=== PATIENT | male | born 1955 | race Two or more races ===

== ENCOUNTER 2016-09-14 08:05 | Inpatient (IN) | payer MEDICAID ==
[2016-09-14 08:44] VITALS: BP 112/68
[2016-09-14] MEDS ORDERED: Dextrose 50% 50 mL Abboject IVP PRN ×2 (09:24→19:23)
[2016-09-14 10:07] LABS: % BASOPHILS 0.9 % (0.0-2.0); % EOSINOPHILS 2.2 % (0.0-5.0); % LYMPHOCYTES 18.6 % (20.0-50.0); % MONOCYTES 6.5 % (2.0-10.0); % NEUTROPHILS 71.8 % (40.0-80.0); HEMATOCRIT 40.4 % (39.0-49.0); HEMOGLOBIN 13.2 gm/dL (13.2-17.3); MEAN CELL VOLUME 81.6 fl (80-99); MEAN CORPUSCULAR HEMOGLOBIN 26.8 pg (26.0-30.0); MEAN CORPUSCULAR HGB CONC 32.8 pg (28.0-36.0); MEAN PLATELET VOLUME 8.5 fl; NEUTROPHILE ABSOLUTE 4.9 Th/cmm (1.8-8.0); PLATELET COUNT 185 Th/cmm (150-400); RED BLOOD COUNT 4.95 Mil/cmm (4.30-5.70); RED CELL DISTRIBUTION WIDTH 15.3 % (11.5-20.0); WHITE BLOOD COUNT 6.7 Th/cmm (4.8-10.8)
[2016-09-14] MEDS ORDERED: Diatrizoate Meglumine/Diatri 30 mL Sol PO ONE (11:00)
[2016-09-14 11:41] LABS: ALB/GLOB RATIO 1.2 (1.0-1.8); ALKALINE PHOSPHATASE 70 U/L (34-104); BILIRUBIN,TOTAL 0.9 mg/dL (0.3-1.0); BUN - UREA NITROGEN 9 mg/dL (7-25); BUN/CREATININE RATIO 12.9; CALCIUM SERUM 9.1 mg/dL (8.6-10.3); CHLORIDE 105 mEq/L (98-107); CREATININE - SERUM 0.7 mg/dL (0.7-1.3); GLUCOSE 58 mg/dL (70-105); SGOT 115 U/L (13-39); SGPT/ALT 27 U/L (7-52); SODIUM SERUM 132 mEq/L (136-145)
--- NOTE | 2016-09-14 11:53 | History & Physical ---
CHIEF COMPLAINT: Hypoglycemia. HISTORY OF PRESENT ILLNESS: This is the case of a 61-year-old male who went to [facility] ER secondary to altered mental status. During review in ER, the patient was found confused, not responsive and became very agitated. Examination shows hypoglycemia, positive for amphetamines. The patient was given D50 and the patient was transferred to the hospital to continue treatment. PAST MEDICAL HISTORY: History of alcohol and drug abuse, acute renal failure, major depression, gastric ulcer, and alcoholism. PAST SURGICAL HISTORY: Information not available. FAMILY HISTORY: Information not available. MEDICATIONS: None. REVIEW OF SYSTEMS: Information was not obtained secondary to the patient's mental condition. PHYSICAL EXAMINATION: GENERAL: Does reveal a fairly nourished and developed male, awake, confused, not oriented, not responding well to questions. HEENT: Head is normocephalic and atraumatic. Pupils reactive to light. Nose: No evidence of nasal obstruction. Ears: No evidence of any discharge. Mouth: Fairly ____. LUNGS: Bilateral air entry. No wheezing, no crackles. HEART: Regular rhythm. ABDOMEN: Soft, nontender. Bowel sounds present. EXTREMITIES: No edema. NEUROLOGICAL: The patient is awake, confused, not oriented. Neurological examination was not completed secondary to the patient's mental condition. IMPRESSION: 1. Hyponatremia. 2. Positive for amphetamines. 3. History of alcohol and drug abuse. PLAN: 1. The patient will be admitted to the medical surgical floor. 2. IV D10 continuous. 3. Endocrinology consult. 4. Regular diet. 5. Insulin level. 6. CBC and CMP. 7. Abdominal CT. JOB# [id number]
[2016-09-14] MEDS: INSULIN ASPART SLIDING SCALE 100 UNITS/ML UNIT SUBQ SCH ×3 (12:14→20:30)
[2016-09-14 12:17] LABS: ANION GAP 5.3 (7.0-16.0); POTASSIUM SERUM 3.3 mEq/L (3.5-5.1)
[2016-09-14] MEDS: Dextrose 10% 1,000 ML IV SCH ×2 (14:24→21:09)
[2016-09-14] MEDS ORDERED: IOHEXOL 300MG/ML 100 ML VIAL IVP ONE (15:05)
[2016-09-14 15:33] LABS: INR 1.02 (0.5-1.4); PROTHROMBIN TIME (TEST) 10.1 SECONDS (9.5-11.5)
[2016-09-14] MEDS ORDERED: VTE Chemical Prophylaxis Screen/Admission MC PRN (16:58)
--- NOTE | 2016-09-14 19:38 | Admit Criteria Form ---
Admit Criteria Forms - Admit Criteria Diagnosis: SUBSTANCE ABUSE Clinical Indications for Admission to Inpatient Care (Place 'X' for any and all applicable criteria): Admission is indicated due to ANY ONE of the following(1)(2)(3)(4)(5): [ ]I. Delirium due to alcohol or sedative A withdrawal B ( Also use Delirium Criteria as appropriate)1,6,7 [ ]II. Alcohol or sedative withdrawal with high-risk indicator as manifested by ALL of the following1,3,6,7 [ ]a) Signs of withdrawal as indicated by ANY ONE of the following: [ ]i) Heart rate greater than 100 beats per minute [ ]ii) Nausea or vomiting [ ]iii) Other physical signs of alcohol or sedative withdrawal [ ]iv) Tremor [ ](v) Increased perspiration [ ]b) Elevated risk due to a historical or comorbid factor as indicated by ANY ONE of the following: [ ]i) History of delirium due to alcohol or sedative withdrawal [ ]ii) History of repetitive seizures due to alcohol or sedative withdrawal C [ ]iii) Intrinsic seizure disorder (epilepsy) [ ]iv) [ ]v) Comorbid medical condition that can be dangerously destabilized by alcohol or sedative withdrawal (eg, severe cardiac disease) [ ]III. Severe alcohol or sedative withdrawal that is unmanageable at lower level of care, as manifested by ALL of the following1,3,6,7 [ ]a) Marked signs of withdrawal as indicated by ANY ONE of the following: [ ]i) Heart rate greater than 120 beats per minute [ ]ii) Vomiting [ ]iii) Grossly visible tremor [ ]iv) Profuse perspiration [ ]v) Temperature greater than 38.3 degrees C (101 degrees F) [ ]vi) Other marked physical signs of alcohol or sedative withdrawal [ ]b) Signs of withdrawal which require inpatient treatment as indicated by ANY ONE of the following: [ ]i) Inadequate response to pharmacotherapy in emergency department or other appropriate lower level of care [ ]ii) Lower level of care not feasible or appropriate (eg, unavailable or inappropriate to patient condition or treatment history) [ ]IV. Severely complicated opioid withdrawal that requires [id number] care as manifested by ALL of the following 1,4,7,11 [ ]a) Vomiting or diarrhea due to opioid withdrawal [ ]b) Marked dehydration or electrolyte abnormality that cannot be corrected (to near normal) in an emergency department or other ambulatory setting (eg, serum K<2.5 mEq/L , serum Na <130 mEq/L [X]V. Acute toxicity or instability from substance use requiring inpatient care (eg, altered mental status, respiratory depression) that has had inadequate response to, or is judged inappropriate for, treatment at lower level of care (eg, emergency department, observation care) [ ]. Other inpatient medical or psychiatric care is needed due to risk or comorbidity as indicated by ALL of the following(18): [ ]a) Treatment is needed because of patient risk due to ANY ONE of the following: [ ]i) Medical condition (eg, severe cardiac disease) that requires 24-hour monitoring and treatment due to danger of destabilization by alcohol or sedative withdrawal is present [ ]ii) Imminent danger to self is present due to ANY ONE of the following(19)(20)(21): [ ]1) Imminent risk for recurrence of Suicide attempt or act of serious Harm to self is present as indicated by ALL of the following: [ ]A. There has been very recent Suicide attempt or deliberate act of serious Harm to self. [ ]B. There has not been Sufficient relief of the factors that precipitated the attempt or act. [ ]2) Current plan for suicide or serious Harm to self is present. [ ]3) Command auditory hallucinations for suicide or serious Harm to self are present. [ ]4) Patient has persistent Thoughts of suicide or serious Harm to self that cannot be adequately monitored at lower level of care due to ANY ONE of the following[E]: [ ]A. Insufficient behavioral care is available to meet patient needs (such as required provider or lower level facility is not available). [ ]B. Patient characteristics such as high impulsivity or unreliability are present. [ ]C. Environment does not support recovery. [ ]D. Ready access to lethal means [ ]iii) Imminent danger to others is present due to ANY ONE of the following(19)(23)(24): [ ]1) Imminent risk for recurrence of attempt to seriously Harm another is present as indicated by ALL of the following: [ ]A. There has been very recent attempt to seriously Harm another. [ ]B. There has not been Sufficient relief of factors that precipitated the attempt or act. [ ]2) Current plan for homicide or serious Harm to another is present. [ ]3) Command auditory hallucinations or paranoid delusions contributing to risk for homicide or serious Harm to another are present. [ ]4) Patient has persistent thoughts of homicide or serious Harm to another that cannot be adequately monitored at lower level of care because of ANY ONE of the following[E]: [ ]A. Insufficient behavioral care is available to meet patient needs (such as required provider or lower level facility is not available). [ ]B. High impulsivity or unreliability is present. [ ]C. Environment does not support recovery. [ ]D. Ready access to lethal means [ ]iv) Severe dysfunction in daily living related to substance use disorder as indicated by ANY ONE of the following(33): [ ]a) Extreme deterioration in social interactions (eg , threatening behaviors with little or no provocation) [ ]b) Complete withdrawal from all social interactions [ ]c) Complete neglect of self-care with associated impairment in physical status [ ]d) Extreme disruption in vegetative function (eg, life-sustaining functions such as eating) [ ]e) Complete inability to maintain any appropriate aspect of personal responsibility in any adult roles (eg, occupational, parental ) [ ]v) Other emotional, behavioral, or cognitive symptoms of sufficient severity to preclude ability to engage in recovery without 24-hour monitoring and treatment are present. [ ]vi) Patient requires monitoring due to substance use in combination with medical, psychiatric, or environmental factors that prevent adequate management at lower level of care as indicated by ALL of the following: [ ]1) Significant substance use effects, medical conditions, or psychiatric comorbidities are present as indicated by ANY ONE of the following [ ]A. Substance toxicity or withdrawal requires medical monitoring. [ ]B. Medical comorbidity requires medical monitoring for destabilization due to alcohol or sedative withdrawal. [ ]C. Emotional, behavioral, or cognitive symptoms of sufficient severity to limit or preclude ability to engage in treatment are present. [ ]2) Conditions, barriers, or environmental factors preventing treatment at lower level of care are present as indicated by ANY ONE of the following: [ ]A. Psychiatric comorbidity or opposition to treatment requires 24-hour setting to ensure adherence with medical treatment or adequate motivating interventions. [ ]B. Severe behavioral problems (eg, escalating relapse behaviors, acute psychiatric or substance use crisis, inability to recognize signs and symptoms of relapse ) require 24-hour setting for relapse prevention.[F] [ ]C. Living environment outside of 24-hour setting prevents recovery (eg, abuse, victimization, patient inability to cope). [ ]b Treatment situation and needs are appropriate for inpatient level ( instead of using lower level of care) as indicated by ANY ONE of the following( 25)(26)(27): [ ]i) Patient is unwilling to participate voluntarily and requires treatment (eg, legal commitment) in involuntary unit.(23) [ ]ii) Voluntary treatment at lower level is not feasible (eg, lower level care unavailable or inappropriate for patient condition). [ ]iii) Physical restraint, seclusion, or other involuntary control is needed (eg, actively violent patient for whom treatment in an involuntary unit is deemed necessary in accord with applicable medical and legal criteria).(23) [ ]iv) [id number]-[id number] medical or nursing care to address symptoms and initiate interventions is required; specific need is identified. Extended stay beyond goal length of stay may be needed for: [ ]a) Onset of delirium [ ]b) Recurrent seizures [ ]c) Persistent severe alcohol or sedative withdrawal [ ]d) Persistent dangerous behavior The original [facility] content created by [employer] has been revised. The portions of the content which have been revised are identified through the use of italic text or in bold, and [facility] has neither reviewed nor approved the modified material. All other unmodified content is copyright [facility]. Please see references footnoted in the original [facility] edition 2016 Admit Criteria Met?: Yes
[2016-09-14 20:36] LABS: AMPHETAMINE URINE POSITIVE (NEGATIVE); BARBITURATES URINE NEGATIVE (NEGATIVE)
[2016-09-15] MEDS: INSULIN ASPART SLIDING SCALE 100 UNITS/ML UNIT SUBQ SCH ×5 (01:08→16:35)
[2016-09-15 05:56] LABS: % BASOPHILS 0.2 % (0.0-2.0); % EOSINOPHILS 2.5 % (0.0-5.0); % LYMPHOCYTES 30.1 % (20.0-50.0); % MONOCYTES 8.4 % (2.0-10.0); % NEUTROPHILS 58.8 % (40.0-80.0); HEMATOCRIT 42.5 % (39.0-49.0); HEMOGLOBIN 13.6 gm/dL (13.2-17.3); MEAN CELL VOLUME 81.6 fl (80-99); MEAN CORPUSCULAR HEMOGLOBIN 26.1 pg (26.0-30.0); MEAN PLATELET VOLUME 8.7 fl; NEUTROPHILE ABSOLUTE 3.3 Th/cmm (1.8-8.0); PLATELET COUNT 205 Th/cmm (150-400); RED BLOOD COUNT 5.21 Mil/cmm (4.30-5.70); RED CELL DISTRIBUTION WIDTH 15.7 % (11.5-20.0); WHITE BLOOD COUNT 5.6 Th/cmm (4.8-10.8)
[2016-09-15 06:18] LABS: ALB/GLOB RATIO 1.1 (1.0-1.8); ALKALINE PHOSPHATASE 87 U/L (34-104); ANION GAP 6.1 (7.0-16.0); BILIRUBIN,TOTAL 0.6 mg/dL (0.3-1.0); BUN - UREA NITROGEN 9 mg/dL (7-25); BUN/CREATININE RATIO 11.3; CALCIUM SERUM 9.4 mg/dL (8.6-10.3); CHLORIDE 107 mEq/L (98-107); CHOLESTEROL 187 mg/dL (<200); CREATININE - SERUM 0.8 mg/dL (0.7-1.3); GLUCOSE 91 mg/dL (70-105); POTASSIUM SERUM 4.1 mEq/L (3.5-5.1); SGOT 119 U/L (13-39); SGPT/ALT 30 U/L (7-52); SODIUM SERUM 134 mEq/L (136-145); TRIGLYCERIDES 162 mg/dL (<150); URIC ACID 4.6 mg/dL (4.4-7.6)
[2016-09-15 07:03] LABS: URINE BILIRUBIN NEGATIVE (NEGATIVE); URINE BLOOD NEGATIVE (NEGATIVE); URINE COLOR YELLOW; URINE GLUCOSE (UA) NEGATIVE (NEGATIVE); URINE KETONE NEGATIVE (NEGATIVE); URINE PROTEIN NEGATIVE (NEGATIVE); URINE UROBILINOGEN 0.2 E.U./dL (0.2 - 1.0)
[2016-09-15 07:10] LABS: URINE BACTERIA NONE SEEN /hpf (NONE SEEN); URINE EPITHELIAL CELLS RARE /lpf (FEW); URINE RBC NONE SEEN /hpf (0-5); URINE WBC NONE SEEN /hpf (0-5)
[2016-09-15] MEDS: Dextrose 10% 1,000 ML IV SCH ×2 (08:49→19:36)
--- NOTE | 2016-09-15 13:22 | General Progress Note ---
Subjective - Review of Systems Service Date: 09/15/16 Subjective: I am better Objective - Results Result Diagrams: 09/15/16 05:20 09/15/16 05:20 Recent Labs: Laboratory Last Values WBC 5.6 Th/cmm (4.8-10.8) 09/15/16 05:20 RBC 5.21 Mil/cmm (4.30-5.70) 09/15/16 05:20 Hgb 13.6 gm/dL (13.2-17.3) 09/15/16 05:20 Hct 42.5 % (39.0-49.0) 09/15/16 05:20 MCV 81.6 fl (80-99) 09/15/16 05:20 MCH 26.1 pg (26.0-30.0) 09/15/16 05:20 MCHC Differential 32.0 pg (28.0-36.0) 09/15/16 05:20 RDW 15.7 % (11.5-20.0) 09/15/16 05:20 Plt Count 205 Th/cmm (150-400) 09/15/16 05:20 MPV 8.7 fl 09/15/16 05:20 Neutrophils % 58.8 % (40.0-80.0) 09/15/16 05:20 Lymphocytes % 30.1 % (20.0-50.0) 09/15/16 05:20 Monocytes % 8.4 % (2.0-10.0) 09/15/16 05:20 Eosinophils % 2.5 % (0.0-5.0) 09/15/16 05:20 Basophils % 0.2 % (0.0-2.0) 09/15/16 05:20 PT 10.1 SECONDS (9.5-11.5) 09/14/16 13:25 INR 1.02 (0.5-1.4) 09/14/16 13:25 Sodium 134 mEq/L (136-145) L 09/15/16 05:20 Potassium 4.1 mEq/L (3.5-5.1) 09/15/16 05:20 Chloride 107 mEq/L (98-107) 09/15/16 05:20 Carbon Dioxide 25.0 mEq/L (21.0-31.0) 09/15/16 05:20 Anion Gap 6.1 (7.0-16.0) L 09/15/16 05:20 BUN 9 mg/dL (7-25) 09/15/16 05:20 Creatinine 0.8 mg/dL (0.7-1.3) 09/15/16 05:20 Est GFR ( Amer) > 60.0 ml/min (>90) 09/15/16 05:20 Est GFR (Non-Af Amer) > 60.0 ml/min 09/15/16 05:20 BUN/Creatinine Ratio 11.3 09/15/16 05:20 Glucose 91 mg/dL (70-105) 09/15/16 05:20 POC Glucose 137 MG/DL (70 - 105) H 09/15/16 11:34 Hemoglobin A1c % 5.3 % (4.0-6.0) 09/15/16 05:20 Uric Acid 4.6 mg/dL (4.4-7.6) 09/15/16 05:20 Calcium 9.4 mg/dL (8.6-10.3) 09/15/16 05:20 Total Bilirubin 0.6 mg/dL (0.3-1.0) 09/15/16 05:20 AST 119 U/L (13-39) H 09/15/16 05:20 ALT 30 U/L (7-52) 09/15/16 05:20 Alkaline Phosphatase 87 U/L (34-104) 09/15/16 05:20 Total Protein 7.5 gm/dL (6.0-8.3) 09/15/16 05:20 Albumin 3.9 gm/dL (4.2-5.5) L 09/15/16 05:20 Globulin 3.6 gm/dL 09/15/16 05:20 Albumin/Globulin Ratio 1.1 (1.0-1.8) 09/15/16 05:20 Triglycerides 162 mg/dL (<150) H 09/15/16 05:20 Cholesterol 187 mg/dL (<200) 09/15/16 05:20 LDL Cholesterol Direct 132 mg/dL (75-193) 09/15/16 05:20 HDL Cholesterol 34 mg/dL (23-92) 09/15/16 05:20 Urine Source CLEAN C 09/15/16 02:30 Urine Color YELLOW 09/15/16 02:30 Urine Clarity SL. CLOUDY (CLEAR) 09/15/16 02:30 Urine pH 7.0 09/15/16 02:30 Ur Specific [place] 1.015 (1.005-1.030) 09/15/16 02:30 Urine Protein NEGATIVE mg/dL (NEGATIVE) 09/15/16 02:30 Urine Glucose (UA) NEGATIVE mg/dL (NEGATIVE) 09/15/16 02:30 Urine Ketones NEGATIVE mg/dL (NEGATIVE) 09/15/16 02:30 Urine Blood NEGATIVE (NEGATIVE) 09/15/16 02:30 Urine Nitrate NEGATIVE (NEGATIVE) 09/15/16 02:30 Urine Bilirubin NEGATIVE (NEGATIVE) 09/15/16 02:30 Urine Urobilinogen 0.2 E.U./dL (0.2 - 1.0) 09/15/16 02:30 Ur Leukocyte Esterase NEGATIVE (NEGATIVE) 09/15/16 02:30 Urine RBC NONE SEEN /hpf (0-5) 09/15/16 02:30 Urine WBC NONE SEEN /hpf (0-5) 09/15/16 02:30 Ur Epithelial Cells RARE /lpf (FEW) 09/15/16 02:30 Urine Bacteria NONE SEEN /hpf (NONE SEEN) 09/15/16 02:30 Urine Opiates Screen POSITIVE (NEGATIVE) H 09/14/16 15:30 Ur Barbiturates Screen NEGATIVE (NEGATIVE) 09/14/16 15:30 Ur Phencyclidine Scrn NEGATIVE (NEGATIVE) 09/14/16 15:30 Amphetamines Screen POSITIVE (NEGATIVE) H 09/14/16 15:30 U Methamphetamines Scrn POSITIVE (NEGATIVE) H 09/14/16 15:30 U Benzodiazepines Scrn POSITIVE (NEGATIVE) H 09/14/16 15:30 U Cocaine Metab Screen NEGATIVE (NEGATIVE) 09/14/16 15:30 U Cannabinoids Screen NEGATIVE (NEGATIVE) 09/14/16 15:30 - Physical Exam Vitals and I&O: Vital Signs Temp 98.2 F 09/15/16 12:06 Pulse 69 09/15/16 12:06 Resp 18 09/15/16 12:06 BP 147/76 09/15/16 12:06 Pulse Ox 99 09/15/16 12:06 Intake & Output 09/14/16 09/15/16 09/15/16 18:59 06:59 18:59 Intake Total 1175 1000 Output Total 1650 Balance -475 1000 Weight (lbs) 72.892 kg Intake: Intake, IV Amount 675 1000 Dextrose 10% 1,000 ml @ 675 1000 100 mls/hr IV .Q10H BIANKA Rx#:[id number] Oral 500 Output: Urine 1650 Other: # Bowel Movements 0 Active Medications: Current Medications Dextrose (D50w) 50 ml IVP PRN PRN PRN Reason: hypoglycemia Stop: 11/13/16 09:23 Last Admin: 09/14/16 20:33 Dose: 50 ml Dextrose (Dextrose 10%) 1,000 mls @ 100 mls/hr IV .Q10H BIANKA Stop: 11/13/16 09:29 Last Admin: 09/15/16 08:49 Dose: 100 mls/hr Insulin Aspart (Novolog Insulin Sliding Scale) 0 units SUBQ Q4HR BIANKA PRN Reason: Protocol Stop: 11/13/16 12:14 Last Admin: 09/15/16 12:07 Dose: Not Given Miscellaneous (Vte Chemical Prophylaxis Screen/ Admission) 1 ea MC PRN PRN PRN Reason: PROTOCOL Stop: 11/13/16 16:57 General: Alert, Oriented x3, Cooperative, No acute distress HEENT: Atraumatic Neck: Supple Cardiovascular: Regular rate Lungs: Clear to auscultation Abdomen: Bowel sounds, Soft Extremities: Other (No edema) Neurological: Normal gait Skin: Other (Warm and dry) Psych/Mental Status: Mental status NL Assessment/Plan - Assessment Assessment: Patient is awake, alert, calm. Dx: Hypoglycemia, drug abuse - Plan Plan: Patient is more awake today, answering question. Abdominal CT will be done today. Insurance request patient be transfered.
--- NOTE | 2016-09-15 14:17 | Diagnostic Imaging Report ---
CT abdomen and pelvis without intravenous contrast Indication: Chronic hypoglycemia Comparison: None, Technique: Axial images were obtained from the lung bases to the bilateral proximal femurs without IV contrast. Oral contrast was administered. Coronal reconstructions were made. total DLP: 419, CTDI8.5 FINDINGS: 1 cm air cyst of the right lung base is noted. Atelectatic changes of the lung bases are noted. There is a 3 mm nodule of the left lung base. Assessment of the solid organs is limited due to lack of IV contrast. No evidence of focal hepatic, splenic, pancreatic, or adrenal lesions. Mild pancreatic gland atrophy is noted. No evidence of renal stones. There is fullness of bilateral renal collecting systems without cricket hydronephrosis. Prostate gland calcifications are noted. Mild diverticulosis is noted without diverticulitis. Copious stool is seen throughout the colon with distal fecal impaction. No evidence of bowel obstruction. Contrast opacified loops of small and large bowel are noted. No free air or free fluid. Diffuse atherosclerosis is noted. Nonspecific areas of induration are seen throughout the subcutaneous tissues bilaterally. Degenerative changes of the spine are noted. IMPRESSION: Copious stool throughout the colon with distal fecal impaction. No evidence of bowel obstruction Minimal diverticulosis without evidence of diverticulitis Mild pancreatic gland atrophy. Nonspecific fullness of the bilateral renal collecting systems without cricket hydronephrosis or evidence of renal stones Moderate atherosclerosis 3 mm nodule the left lung base nonspecific and may be due to prior infectious or inflammatory etiology. Please correlate with clinical history an old exams, if available. If indicated a follow-up CT in 12-18 months may be obtained for long-term assessment/monitoring. Nonspecific areas of induration throughout the subcutaneous tissues bilaterally.
[2016-09-16 10:25] LABS: A/G RATIO 0.9 (0.7-1.7); ALBUMIN 3.3 g/dL (2.9-4.4); ALPHA-1-GLOBULIN 0.2 g/dL (0.0-0.4); BETA GLOBULIN 1.1 g/dL (0.7-1.3); GAMMA GLOBULIN 1.4 g/dL (0.4-1.8); GLOBULIN, TOTAL 3.6 g/dL (2.2-3.9); M-SPIKE Not Observed g/dL (Not Observed); PROTEIN, TOTAL, SERUM 6.9 g/dL (6.0-8.5)
== END 2016-09-15 19:50 | DRG 52 ==
LOC: TELE 08:05
PROVIDERS: ADMIT General Practice; ATTEND General Practice
DX: G92 Toxic encephalopathy (principal); E87.1 Hypo-osmolality and hyponatremia; K27.9 Peptic ulcer, site unspecified, unspecified as acute or chronic, without hemorrhage or perforation; E16.2 Hypoglycemia, unspecified; F32.9 Major depressive disorder, single episode, unspecified; F10.20 Alcohol dependence, uncomplicated; F19.10 Other psychoactive substance abuse, uncomplicated
CPT/HCPCS: 36415-UA; 80053-TC; 80061-TC; 81001-TC; 82105-90; 82306-90; 82533-90; 82607-90; 82947-TC; 82948-90; 83036-90; 84165-90; 84439-90; 84550-TC; 85025-TC; 85610-TC; 90799; J1815; Q9967; Z7610